=== PATIENT | male | born 1970 | race Two or more races ===

== ENCOUNTER 2021-06-24 10:15 | Emergency (ER) | payer SELFPAY ==
[2021-06-24 11:40] VITALS: BP 202/105; PULSE 75; RESP 20; TEMP 36.9; O2SAT 98; BMI 29.2
--- NOTE | 2021-06-24 11:42 | XR_ITS ---
PROCEDURE: XR KNEE RT 3V CLINICAL INDICATION: pain COMPARISON: No exams were available for comparison FINDINGS: No fracture or dislocation. No lytic or blastic change. There is normal mineralization. There are mild osteoarthritic changes involving all 3 compartments. Suprapatellar effusion is noted. There is a small enthesophyte along the superior aspect of the patella. Other findings:None. IMPRESSION: Mild osteoarthritis with knee joint effusion Dictated by: Rolando Stearns MD 06/24/2021 12:09 Rolando Stearns MD in [place] 06/24/2021 12:09
--- NOTE | 2021-06-24 12:00 | HMH.EDUTC ---
[facility] [place] Disposition Clinical Impression: Swelling of right knee joint Right knee pain Qualifiers: Chronicity: acute Qualified Code(s): M25.561 - Pain in right knee Disposition: Home, Self-Care Condition on Discharge: Good Instructions: How to Use Crutches, DI for Knee Pain, How to Use a Knee Immobilizer Additional Instructions: Rest the extremity, Wear the radha wrap for compression, Elevate the extremity as tolerated while you are resting. Use the crutches and knee immobilizer until you are evaluated by orthopedics (Dr. Mehta). Take ibuprofen for pain. I sent in a prescription to your pharmacy. Follow up with Dr. Mehta (orthopedics). I put in a referral but you need to call his office and schedule an appointment. Follow up with your regular doctor. GO TO THE ER FOR ANY WORSENING SYMPTOMS Prescriptions: Ibuprofen [Ibuprofen 600mg Tablet] 600 mg PO Q6HP PRN #30 tab PRN Reason: Mild Pain Transmission Status: Received by [id number] Referrals: ProviderJean Marie MD [Primary Care Provider] - Kolton Mehta MD [Staff Physician] - Forms: Work/School Release Time of Disposition: 12:05 Medical Decision Making - Medical Records Medical records reviewed: No: I reviewed the patient's medical records. - Berto Inquiry Pt receiving controlled substance: No Vital Signs: 06/24/21 11:40 06/24/21 12:44 Temperature 98.5 F 98 F Temperature Source Oral Pulse Rate 82 Pulse Rate [Left] 75 Respiratory Rate 20 18 Blood Pressure 185/96 H Blood Pressure [Right Arm] 202/105 H Blood Pressure Mean [Right Arm] 137 Blood Pressure Position [Right Arm] Sitting 02 Sat by Pulse Oximetry 98 - Radiology Data #1 Image(s): Knee Image Reviewed: Yes I reviewed the patient's radiology image, Yes I have reviewed radiologist's interpretation Preliminary Findings: No Fracture Seen PROCEDURE: XR KNEE RT 3V CLINICAL INDICATION: pain COMPARISON: No exams were available for comparison FINDINGS: No fracture or dislocation. No lytic or blastic change. There is normal mineralization. There are mild osteoarthritic changes involving all 3 compartments. Suprapatellar effusion is noted. There is a small enthesophyte along the superior aspect of the patella. Other findings:None. IMPRESSION: Mild osteoarthritis with knee joint effusion Dictated by: Rolando Stearns MD 06/24/2021 12:09 in [facility] HPI - General Stated complaint: Right knee swollen and pain, no accident Time Seen by Provider: 06/24/21 12:00 Mode of Arrival: Ambulatory Source of Information: Patient Limitations: No Limitations Description of Symptoms (Recalled from Triage Doc. by RN): R knee pain HEENT Symptoms (Recalled from RN notes): No Resp Symptoms (Recalled from RN notes): No Skin Symptoms (Recalled from RN notes): No MS Symptoms (Recalled from RN notes): Yes (R knee pain) Functional Status (Recalled from RN notes): na - History of Present Illness Provider Complaint: He states that he twisted his right knee 2 to 3 days ago. Since then he has had right knee pain and swelling. The pain is worse when he walks, bends the knee or bears weight on it. - Related Data Previous Rx's Medication Instructions Recorded Ibuprofen [Ibuprofen 600mg 600 mg PO Q6HP PRN #30 tab 06/24/21 Tablet] Allergies Allergy/AdvReac Type Severity Reaction Status Date / Time NO KNOWN ALLERGIES Allergy Uncoded 11/03/17 14:07 - Worker's Comp Is this a Worker's Comp case?: No [facility] History - Hepatitis A Screen Drug use history?: No High risk sexual behaviors?: No History of sexually transmitted infection?: No Currently employed?: No Childcare worker?: No Do you have indoor plumbing?: Yes Do you have electricity?: Yes Attestation statement:: This patient has been screened for Hepatitis A risk factors. I have reviewed the patient's past medical history: Yes ROS Obtained: Yes All systems review
[2021-06-24 12:44] VITALS: BP 185/96; PULSE 82; RESP 18; TEMP 36.6
== END 2021-06-24 12:47 | disposition home or self-care (01) ==
PROVIDERS: Emergency Provider Nurse Practitioner Family
DX: M25.561 Pain in right knee (principal); M25.461 Effusion, right knee; X50.1XXA Overexertion from prolonged static or awkward postures, initial encounter; Y92.9 Unspecified place or not applicable
CPT/HCPCS: 73562; 99202; G0463